=== PATIENT | female | born 1965 | race African-American/Black ===

== ENCOUNTER 2020-12-09 09:10 | Emergency (ER) | payer MEDICAID ==
[~2020-12-09] VITALS: Ht 167.6 cm; Wt 74.0 kg
[2020-12-09 09:15] VITALS: BP 156/100
[2020-12-09] MEDS ORDERED: DIPH25CA83 MT (09:29)
[2020-12-09] MEDS ORDERED: TC1U15 TP (09:29)
[2020-12-09] MEDS ORDERED: PREDNISONE 20MG TABLET PO ONE (09:30)
[2020-12-09] MEDS ORDERED: DIPHENHYDRAMINE 25MG CAPSULE PO ONE (09:30)
== END 2020-12-09 09:50 | disposition home or self-care (01) ==
LOC: ER 09:10
DX: L30.9 Dermatitis, unspecified (principal); I10 Essential (primary) hypertension; Z88.0 Allergy status to penicillin
CPT/HCPCS: 99283; J7512; Q0163